=== PATIENT | female | born 1995 | race Caucasian/White ===

== ENCOUNTER → 2021-09-17 | Outpatient (CLI) | payer OTHER | LOC: DIA.ED 09:27 | DX: O24.419 Gestational diabetes mellitus in pregnancy, unspecified control (principal) | CPT/HCPCS: G0108 ==

== ENCOUNTER 2021-10-31 17:57 | Outpatient (CLI) | payer OTHER ==
[~2021-10-31] VITALS: Ht 157.5 cm; Wt 98.2 kg
[2021-10-31 18:30] VITALS: TEMP 98.6
[2021-10-31 19:10] VITALS: BP 126/82; PULSE 90; TEMP 98.6
--- NOTE | 2021-10-31 19:10 | NUR ---
PT PRESENTS TO L&D WITH C/O UPPER RIGHT QUAD PAIN UNDER HER RIB IN A 2 INCH [place]. STATES IT JUST COMES AND GOES SOMETIMES. DENIES UC'S, BLEEDING OR LEAKING FLUID. PT HAS HX OF GASTRITIS, ULCER, ANXIETY, DEPRESSION, PCOS, HPV, TACHYCARDIA, SHE HAD A CARIAC WORKUP THAT CAME BACK NORMAL. PT VERY ANXIOUS OVER A FRIEND WHO HAD HELLP SYNDROME AND WAS CODED ABOUT A MONTH AGO, NOW SHE IS AFRAID SHE IS GETTING PIH/HELLP. A 24 HR URINE WAS DONE 10/29/2021 PROTIEN RESULTS ARE 212. PT STATES SHE IS NOT TAKING HER ZOLOFT FOR ANXIETY BECAUSE SHE FEELS IT IS UNDER CONTROL. VS ARE ALL STABLE BP 126/82. HR 80-90'S. DR KRISHNAMURTHY TOOL CHECKER NOTIFIED OF PT'S COMPLAINTS AND ANXIETY. ORDERS NOTED SHE MAY TAKE EXTRA STRENGTH TYLENOL FOR THE PAIN, TEACH HER TO WATCH FOR THE EDEMA IN HER LEGS WHICH IS A SIGN OF PIH. PT HAS NO EDEMA AT THIS TIME. PT AND HER VERBALIZED UNDERSTANDING. PT DISCHARGED HOME WITH DISCOMFORTS OF AND TO KEEP HER NEXT FOLLOW UP APPT WITH DR LOTT. PT VERBALIZED UNDERSTANDING. PT STATED THAT MAKES HER FEEL BETTER TO KNOW THE BABY IS FINE AND HER BP IS FINE. PT AND HER LEFT AMB OUT AT 1915.
== END 2021-10-31 19:05 | disposition home or self-care (01) ==
LOC: LDRO 17:57 → LDR 18:05 → LDRO 19:05
DX: O26.899 Other specified pregnancy related conditions, unspecified trimester (principal); R52 Pain, unspecified; Z3A.00 Weeks of gestation of pregnancy not specified
CPT/HCPCS: OP

== ENCOUNTER 2021-11-13 07:34 | Inpatient (IN) | payer OTHER ==
[~2021-11-13] VITALS: Ht 157.5 cm; Wt 99.5 kg
[2021-11-14] VITALS (7 sets, daily range): BP systolic 97–130; BP diastolic 53–72; PULSE 87–103; TEMP 98.4
--- NOTE | 2021-11-14 21:00 | NUR ---
PT TO UNIT AMBULATORY WITH SPOUSE FOR CYTOTEC INDUCTION. ORIENTED TO ROOM, CHANGED INTO GOWN, UA COLLECTED. EFM X2 APPLIED, VS OBTAINED.
[2021-11-14 21:54] LABS: COLLECTION METHOD CLEAN CATCH
[2021-11-14 21:57] LABS: BASO # 0.1 K/mm3 (0.0-0.2); BASO % 0.5 % (0.0-2.0); EOS # 0.1 K/mm3 (0.0-0.7); EOS % 0.9 % (0.0-4.0); GRAN # 11.2 K/mm3 (1.4-6.5); GRAN % 73.8 % (42.2-75.2); HEMATOCRIT 41.5 % (37.0-47.0); HEMOGLOBIN 13.6 g/dl (12.5-16.0); LYMPH # 2.8 K/mm3 (1.2-3.4); LYMPH % 18.7 % (20.0-51.0); MEAN CELL VOLUME 91 fl (80.0-100.0); MEAN CORPUSCULAR HEMOGLOBIN 30 pg (27-31); MEAN CORPUSCULAR HGB CONC 33 g/dl (33.0-37.0); MEAN PLATELET VOLUME 10.2 fl (7.4-10.4); MONO # 0.8 K/mm3 (0.1-0.6); MONO % 5.2 % (1.7-9.3); PLATELET COUNT 319 K/mm3 (130-400); RED BLOOD COUNT 4.56 M/mm3 (4.10-5.30); REDCELL DISTRIBUTION WIDTH-CV 14.2 % (11.5-14.5)
[2021-11-14 21:57] LABS: URINE APPEARANCE Clear (CLEAR/HAZY); URINE COLOR Yellow (YELLOW)
[2021-11-14 21:58] LABS: URINE BLOOD Negative (NEGATIVE); URINE GLUCOSE Negative (NEGATIVE); URINE KETONE Negative (NEGATIVE); URINE NITRATE Negative (NEGATIVE); URINE PROTEIN(semi-quant) Negative (NEGATIVE); URINE UROBILINOGEN 0.2 E.U/dL (0.2-1.0)
[2021-11-14 22:03] LABS: MUCOUS Present (NOT PRESENT); URINE BACTERIA Rare /hpf (NONE SEEN); URINE RBC 0-2 /hpf (0-2)
[2021-11-14 22:14] LABS: ALBUMIN 2.8 gm/dL (3.5-5.0); BILIRUBIN,TOTAL 0.2 mg/dL (0.2-1.2); CALCIUM 9.1 mg/dL (8.4-10.2); CREATININE, serum 0.66 mg/dL (0.57-1.11)
[2021-11-14] MEDS ORDERED: QUALITY CHOICE1 TA7 PO (22:20)
--- NOTE | 2021-11-14 23:38 | NUR ---
LATE DECEL DOWN TO 90BMP. PT SITTING SEMIFOWLERS, THIS NURSE IN ROOM, TURNED TO RIGHT LATERAL, FHTs REMAIN AT 90, TURNED TO LEFT LATERAL AND IVF BOLUS STARTED. FHTs RETURN TO BASELINE OF 145 WITHOUT FURTHER INTERVENTION.
[2021-11-15] VITALS (56 sets, daily range): BP systolic 90–138; BP diastolic 50–86; PULSE 70–162; TEMP 98–98.5
--- NOTE | 2021-11-15 08:25 | NUR ---
JEFRY HERE. REVIEWING FHR STRIP
--- NOTE | 2021-11-15 08:45 | NUR ---
0830 DR CAPPS IN PT'S ROOM DISCUSSING PLAN OF CARE 0832 DR CAPPS CONFIRMS VERTEX PRESENTATION WITH ULTRASOUND [address] CAPPS /-2. 0835 AROM.
--- NOTE | 2021-11-15 16:00 | NUR ---
[address] CAPPS IS ON UNIT ASSESSING FHR MONITOR
--- NOTE | 2021-11-15 20:15 | NUR ---
2015 EPID DC'C. UP TO BR WITH ASSIST. UNABLE TO VOID. PERICARE DONE AND AMB TO 214. ROSI WELL.
[2021-11-16 02:00] VITALS: BP 101/60; PULSE 75; TEMP 97.8
[2021-11-16] MEDS ORDERED: IBU600 MG PO (07:26)
[2021-11-16 07:40] VITALS: BP 103/68; PULSE 88; TEMP 97.7; TEMP 99.4
[2021-11-16 07:51] LABS: HEMATOCRIT 37.1 % (37.0-47.0); HEMOGLOBIN 12.1 g/dl (12.5-16.0)
--- NOTE | 2021-11-16 09:28 | NUR ---
Initial visit; Parents thanked Assistant Produce Manager for offering congratulations and God's blessings for the of their son. Assistant Produce Manager thanked family for choosing [facility].
--- NOTE | 2021-11-16 17:56 | NUR ---
DISCHARGE INSTRUCTIONS REVIEWED WITH PT AND PT'S SPOUSE REGARDING FOLLOW-UP, PAIN MANAGEMENT, LARISA CARE AND WHEN TO CALL PHYSICIAN. QUESTIONS INVITED AND ANSWERED. PT VERBALIZES UNDERSTANDING.
== END 2021-11-16 18:10 | disposition home or self-care (01) | DRG 807 ==
LOC: OB 11-14 16:26 → LDR 11-14 20:49 → OB 11-14 20:49
PROVIDERS: ADMIT Obstetrics & Gynecology
PROC: 3E0P7VZ Introduction of Hormone into Female Reproductive, Via Natural or Artificial Opening (ICD-10-PCS; 2021-11-14)
PROC: 10E0XZZ Delivery of Products of Conception, External Approach (ICD-10-PCS; principal; 2021-11-15)
PROC: 0KQM0ZZ Repair Perineum Muscle, Open Approach (ICD-10-PCS; 2021-11-15)
PROC: 10907ZC Drainage of Amniotic Fluid, Therapeutic from Products of Conception, Via Natural or Artificial Opening (ICD-10-PCS; 2021-11-15)
PROC: 3E033VJ Introduction of Other Hormone into Peripheral Vein, Percutaneous Approach (ICD-10-PCS; 2021-11-15)
DX: O13.4 Gestational [pregnancy-induced] hypertension without significant proteinuria, complicating childbirth (principal); Z37.0 Single live birth; O24.420 Gestational diabetes mellitus in childbirth, diet controlled; O99.344 Other mental disorders complicating childbirth; F32.A Depression, unspecified; F41.9 Anxiety disorder, unspecified; O99.284 Endocrine, nutritional and metabolic diseases complicating childbirth; E28.2 Polycystic ovarian syndrome; O70.1 Second degree perineal laceration during delivery; Z3A.38 38 weeks gestation of pregnancy
CPT/HCPCS: J2590; J7120